=== PATIENT | female | born 1995 | race African-American/Black ===

== ENCOUNTER 2017-07-14 22:21 | Emergency (ER) | payer SELFPAY ==
[~2017-07-14] VITALS: Ht 160 cm; Wt 75.2 kg
[2017-07-14] MEDS ORDERED: BENADRYL 50MG C50 MG PO (23:19)
[2017-07-14 23:48] VITALS: BP 131/77
== END 2017-07-14 23:40 | disposition home or self-care (01) | DRG 607 ==
LOC: ED 22:21
DX: L50.0 Allergic urticaria (principal)